=== PATIENT | male | born 1980 | race Caucasian/White ===

== ENCOUNTER 2020-08-21 19:23 | Emergency (ER) | payer OTHER ==
[~2020-08-21] VITALS: Ht 180 cm; Wt 72.5 kg
[2020-08-21 19:35] VITALS: BP 120/79
[2020-08-21] MEDS ORDERED: AMOX-358 PO (19:52)
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
[2020-08-21] MEDS ORDERED: AUGMENTIN 875 MG TAB (AMOXICILLIN/CLAVULANATE) PO SCH (20:00)
== END 2020-08-21 20:04 | disposition home or self-care (01) ==
LOC: EDUNIT# 19:23 → ER 19:26
DX: S61.051A Open bite of right thumb without damage to nail, initial encounter (principal); W50.3XXA Accidental bite by another person, initial encounter
CPT/HCPCS: 99283